=== PATIENT | male | born 1995 | race Caucasian/White ===

== ENCOUNTER 2023-02-10 19:29 | Emergency (ER) | payer OTHER ==
[2023-02-10 19:39] VITALS: PULSE 84; RESP 18; TEMP 98.5; BMI 38.2
[2023-02-10 20:48] LABS: BASO % 0.6 % (0-2.0); EOS % 2.1 % (0-4.5); HEMOGLOBIN 15.5 GM/dL (11.7-16.9); LYMPH % 30.4 % (8-40); MCH 27.9 pg (25.7-33.7); MCHC 35.2 g/dl (32.0-35.9); MEAN CELL VOLUME 79.4 fl (80-96); MEAN PLT VOLUME 9.3 fl (7.5-11.1); NEUT % 59.9 % (42.8-82.8); PLATELET COUNT 390 10^3/uL (134-434); RBC 5.55 M/mm3 (4.00-5.60); RDW 12.7 % (11.9-15.9)
[2023-02-10] MEDS ORDERED: LOSARTAN 50MG/HCTZ 12.5MG 1 TAB PO ONE (20:54)
[2023-02-10] MEDS ORDERED: amLODIPine BESYLATE 5 MG TABLET (FP) PO ONE (20:54)
[2023-02-10] MEDS ORDERED: LOSARTAN POTASSIUM 50 MG TABLET ONE (21:04)
[2023-02-10] MEDS ORDERED: amLODIPine BESYLATE 5 MG TABLET (FP) ONE (21:04)
[2023-02-10 21:24] LABS: CALCIUM 9.6 mg/dL (8.5-10.1)
[2023-02-10 21:25] LABS: ALBUMIN 3.7 g/dl (3.4-5.0); BLOOD UREA NITROGEN 9.1 mg/dL (7-18); MAGNESIUM 2.1 mg/dL (1.8-2.4)
[2023-02-10 21:28] LABS: CREATININE 0.9 mg/dL (0.55-1.3)
[2023-02-10 21:29] LABS: TOT PROT 8.4 g/dl (6.4-8.2)
[2023-02-10 21:30] LABS: BILIRUBIN,TOTAL 0.8 mg/dL (0.2-1)
[2023-02-10 21:49] VITALS: BP 153/94
[2023-02-10 21:51] LABS: EPI CELLS 10 /uL (0-25.1); HYALINE CASTS 2 /uL (0-3.1); PH,URINE 6.5 (5.0-8.0); URINE APPEARANCE CLEAR; URINE BACTERIA 7 /uL (0-1359); URINE BILIRUBIN 1+ (NEGATIVE); URINE COLOR DK YELLOW; URINE GLUCOSE (UA) NEGATIVE (NEGATIVE); URINE KETONE TRACE (NEGATIVE); URINE LEUK ESTERASE NEGATIVE (NEGATIVE); URINE NITRITE NEGATIVE (NEGATIVE); URINE PROTEIN 1+ (NEGATIVE); URINE RBC 30 /uL (0-23.9); URINE WBC 17 /uL (0-25.8)
== END 2023-02-10 22:36 | disposition home or self-care (01) ==
LOC: JER 19:29
DX: R42 Dizziness and giddiness (principal); I10 Essential (primary) hypertension; R06.02 Shortness of breath; Z20.822 Contact with and (suspected) exposure to COVID-19
CPT/HCPCS: 0241U-QW; 36415; 71046-TC-FY; 80053; 81003; 83735; 84484; 85025; 87086; 93005; 93010; 99285-25